=== PATIENT | male | born 1980 | race Caucasian/White ===

== ENCOUNTER 2017-10-24 19:51 | Emergency (ER) | payer SELFPAY ==
[~2017-10-24] VITALS: Ht 180.3 cm; Wt 113.4 kg
[2017-10-24 19:56] VITALS: BP 158/108
[2017-10-24] MEDS ORDERED: LACT1CAP12 PO (20:01)
[2017-10-24] MEDS ORDERED: FAMO20TA28 PO (20:01)
--- NOTE | 2017-10-24 20:01 | ER Report ---
History and Physical Time Seen By MD: 20:00 Hx. of Stated Complaint: PATIENT HAS BEEN HAVING TOOTH ACHE FOR THE LAST TWO DAYS. HE HAS BEEN TAKING MOTRIN AND TYLENOL AT HOME. PAIN IS NOW RADITATIN TO NECK AND EAR AND HEAD. HPI/ROS History of a deviated septum because of this he was unable to get tooth extracted it [place] and has been working with a dentist down there is going to have a surgery 3 move this broken tooth is currently scheduled for February they're trying to move closer Allergies: Coded Allergies: No Known Drug Allergies (Unverified , 10/24/17) Home Meds Active Scripts Penicillin V Potassium 500 Mg Tab (PENICILLIN V POTASSIUM 500 MG TAB) 500 Mg Tablet, 500 MG PO BID, #14 TAB Prov:DONNA NELSON 10/24/17 Tramadol Hcl (ULTRAM) 50 Mg Tablet, 50-100 MG PO Q4-6H, #20 TAB Prov:DONNA NELSON 10/24/17 Reported Medications Lactobacillus Combo No.11 (PROBIOTIC) 1 Each Cap.sprink, 1 CAP PO QDAY 10/24/17 Famotidine (PEPCID) 20 Mg Tablet, 20 MG PO QDAY, #10 TAB 10/24/17 Past Medical/Surgical History Has been bit feeling bad for a week working with a dentist in [place] trying to get the tooth removed on they were unable to do it in the office the trying to get a surgical time to do it is waiting for a closer time it is now currently scheduled for February Hx Substance Use Disorder: No Hx Alcohol Use: No Family History of: HTN Constitutional Vital Sign - Last 24 Hours 10/24/17 19:56 Temp 98.3 Pulse 88 Resp 20 B/P (MAP) 158/108 Pulse Ox 93 Physical Exam 37-year-old male alert and oriented mild distress HEENT head normocephalic atraumatic tympanic membranes are non-reddened throat is non-reddened noted he does have a broken tooth left lower 2nd molar no abscess no lymphadenopathy neck is supple heart rate regular lungs clear to auscultation abdomen is soft Medical Decision Making ED Course/Re-evaluation ED Course Patient refused a dental block he did agree to have a shot of antibiotic gram of Rocephin was given IM he also wanted something for pain agreed to have Toradol 60 IM we'll send him home with Ultram 51 every 6 when necessary pain # 20 no refills and Pen-Vee K 500 twice a day for 7 Re-evaluation Is doing better after treatment will call his doctor in [place] on Friday Decision to Disposition Date: Oct 24, 2017 Decision to Disposition Time: 20:21 Depart Departure Latest Vital Signs Vital Signs Date Time Temp Pulse Resp B/P (MAP) Pulse Ox O2 Delivery O2 Flow Rate FiO2 10/24/17 19:56 98.3 88 20 158/108 93 Impression: Primary Impression: Broken tooth Additional Impression: Dental caries Condition: Improved Disposition: HOME OR SELF-CARE New Scripts Penicillin V Potassium 500 Mg Tab (PENICILLIN V POTASSIUM 500 MG TAB) 500 Mg Tablet 500 MG PO BID, #14 TAB Prov: DONNA NELSON 10/24/17 Tramadol Hcl (ULTRAM) 50 Mg Tablet 50-100 MG PO Q4-6H, #20 TAB Prov: DONNA NELSON 10/24/17 Patient Instructions: Dental Caries (ED) Additional Instructions: Call your dentist in [place] on Friday to report that he had to come to the emergency room for increased pain over the weekend to see if you can move your procedure up Problem Qualifiers DONNA NELSON Oct 24, 2017 20:01
[2017-10-24] MEDS ORDERED: PENI-24 PO (20:09)
[2017-10-24] MEDS ORDERED: TRAM-627 PO (20:09)
[2017-10-24] MEDS ORDERED: LIDOCAINE 1% MDV 200 MG/20 ML INJ ONE (20:10)
[2017-10-24] MEDS ORDERED: KETOROLAC 60 MG/2 ML VIAL IM ONE (20:10)
[2017-10-24] MEDS ORDERED: cefTRIAXone 1 GM VIAL IM ONE (20:10)
== END 2017-10-24 20:28 | disposition home or self-care (01) ==
LOC: ER 20:03
DX: S02.5XXA Fracture of tooth (traumatic), initial encounter for closed fracture (principal)
CPT/HCPCS: 96372; 99283; J0696; J1885; J2001

== ENCOUNTER → 2019-01-20 | Outpatient (CLI) | payer OTHER ==
[~2019-01-20] MED LIST: FAMO20TA28 PO; FLUT16SP19 NS; LACT1CAP12 PO; PANT40TA65 PO; PENI-24 PO; RANI-366 PO; TRAM-627 PO
[2019-01-20 08:59] LABS: PLATELET COUNT, AUTOMATED 256 K/uL (150-450)
[2019-01-20 10:03] LABS: LDL CHOLESTEROL 139 mg/dl
== END ==
LOC: LAB 08:35
PROVIDERS: ATTEND Internal Medicine
DX: K21.9 Gastro-esophageal reflux disease without esophagitis (principal)
CPT/HCPCS: 36415; 82040; 82247; 82310; 82374; 82435; 82465; 82565; 82947; 83718; 84075; 84132; 84155; 84295; 84443; 84450; 84460; 84478; 84520; 85025; 86677

== ENCOUNTER → 2019-01-26 | Outpatient (CLI) | payer OTHER ==
--- NOTE | 2019-01-26 13:40 | RADIOLOGY IMAGING REPORT ---
FACILITY: [facility] - [place] PATIENT NAME: Qamar Neely : 1980 MR: [id number] V: [id number] EXAM DATE: ORDERING PHYSICIAN: MARY WISE TECHNOLOGIST: [place] [facility] [place]: Qamar Neely : 1980 Visit/Account:[id number] Date of Sevice: 01/26/[address] scan without contrast HISTORY: Head pressure COMPARISONS: None TECHNIQUE: Non-contrast head CT was performed with sagittal and coronal reformations. One of the following dose optimization techniques was utilized in the performance of this exam: autom ated exposure control; adjustment of the mA and/or kV according to patient size; or use of iterative reconstruction technique. Specific details can be referenced in the facility's radiology CT exam ope rational policy. FINDINGS: There is no intracranial hemorrhage, hydrocephalus or midline shift. The basal cisterns, story-white differentiation, and convexity sulci are maintained. The visible orbital soft tissues are normal. N o apparent parenchymal abnormality. The mastoid air cells are clear. The paranasal sinuses are clear. The osseous structures are normal . IMPRESSION: No acute intracranial abnormality. Normal head CT. Report Dictated By: Chalo Goldberg MD at 01/26/2019 1:33 PM Report E-Signed By: Chalo Goldberg MD at 01/26/2019 1:36 PM WSN:[id number]
== END ==
LOC: CT 01:14
PROVIDERS: ATTEND Internal Medicine
DX: R51 Headache (principal)
CPT/HCPCS: 70450